=== PATIENT | female | born 1995 | race Two or more races ===

== ENCOUNTER 2024-05-20 02:02 | Emergency (ER) | payer OTHER, SELFPAY ==
[2024-05-20 02:14] VITALS: BP 133/88; PULSE 76; TEMP 36.7; O2SAT 98; BMI 39.5
--- NOTE | 2024-05-20 02:57 | ED.GENADUL1 ---
HPI HPI - General Adult General Chief complaint: Weakness Stated complaint: GENERAL WEAKNESS Time Seen by Provider: 05/20/24 02:15 Source: patient Mode of arrival: walk-in Limitations: no limitations History of Present Illness HPI narrative: This 28-year-old female the history of seizures presents for evaluation of blurred vision in the left eye with the sensation that her face is tight on the left side of her face with some facial numbness and numbness of her left anterior chest. She describes her symptoms as contractions of the muscles in her face. She states the symptoms started over 2 days ago. She was at work and had a migraine headache. She has been taking ibuprofen since that time. She does have intermittent episodes of nausea. Upon arriving to the emergency department and having a warm blanket placed on her she states she felt like she was going to pass out and was nauseated at that time. She thinks it was due to the heat from the blanket. She does admit to tobacco use but denies any alcohol or drug use. She has not had any slurred speech or confusion. She has no weakness. She has not had any falls. She has not had a seizure in over a year. She does not currently follow with any neurologist. She was seen by neurology in [place] when she was younger. Related Data Home Medications ?Medication ?Instructions ?Recorded ?Confirmed cyclobenzaprine 10 mg tablet 10 mg PO Q8H pain 05/20/24 05/20/24 lidocaine 5 % topical patch 1 patch topical Q24H PRN pain 05/20/24 05/20/24 Allergies Allergy/AdvReac Type Severity Reaction Status Date / Time No Known Drug Allergies Allergy Verified 05/20/24 02:21 Opioid HPI Opioid Management Most Recent Opioid Data: Last Pain Scale 6 05/20/24 02:30 05/20/24 Last ED Pain Assessment 05/20/24 02:30 Review of Systems ROS Status of ROS 10 or more systems reviewed and unremarkable except as noted in history and below PFSH PFSH Social History Little interest or pleasure in doing things: not at all Feeling down, depressed, or hopeless: nearly every day Exam Narrative Exam Narrative: Vital signs and Nursing Notes reviewed: She is afebrile with a normal pulse, normal blood pressure, she is not hypoxic with pulse ox of 98% on room air General: Awake, alert, oriented, no acute distress, lying comfortably on the stretcher HEENT: Normocephalic atraumatic, mucous membranes are moist and pink, eyes are clear, normal conjunctiva, vision is grossly intact, funduscopic exam is normal Neck: Supple, no meningeal signs, no anterior or posterior cervical lymphadenopathy Chest: Lungs are clear to auscultation with good air entry, there is no wheezing rhonchi or rales appreciated no accessory muscle use, patient is speaking in complete sentences-no chest wall tenderness to palpation CVS: Regular rate and rhythm S1-S2, no murmurs rubs or gallops, pulses are brisk and equal bilaterally ABD: Soft, nondistended, nontender, no rebound guarding or rigidity, bowel sounds are normal, no pulsatile masses appreciated Extremities: Moving all extremities, no lower extremity tenderness or swelling noted, negative Homans' sign, pulses are brisk and equal bilaterally Skin: Normal in appearance without rash,pallor, petechiae or purpura Neuro: No focal deficits, speech is clear, there is no facial droop, patient states that she has decreased sensation to light touch on the left cheek. 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 Constitutional Vital Signs, click to edit/add: Last Vital Signs Temp 98.0 F 05/20/24 02:14 Pulse 75 05/20/24 05:15 Resp 16 05/20/24 05:15 BP 129/71 05/20/24 05:15 Pulse Ox 95 05/20/24 05:15 O2 Del Method Room Air 05/20/24 05:15 Course Vital Signs Vital signs: Vital Signs Temperature 98.0 F 05/20/24 02:14 Pulse Rate 76 05/20/24 02:14 Respiratory Rate 16 05/20/24 02:14 Blood Pressure 133/88 05/20/24 02:14 Pulse Oximetry 98 05/20/24 02:14 Oxygen Delivery Method Room Air 05/20/24 02:14 Temperature 98.0 F 05/20/24 02:14 Pulse Rate 75 05/20/24 05:15 Respiratory Rate 16 05/20/24 05:15 Blood Pressure 129/71 05/20/24 05:15 Pulse Oximetry 95 05/20/24 05:15 Oxygen Delivery Method Room Air 05/20/24 05:15 Medical Decision Making ROSALEE Narrative Medical decision making narrative: This 28-year-old female with a history of a seizure disorder who is currently not on any medications does not see neurology presents for evaluation of greater than 2 days of the sensation that her left side of her face is numb with some blurred vision. She also states she has had numbness in her left anterior chest for the past 2 years. That is currently better. She has not recently had any seizures but states her symptoms started after having a migraine headache. She stated to me that she does not get migraine headaches but then stated that her symptoms started with a migraine headache while at work 2 nights ago. She has been taking ibuprofen without significant improvement. Her vital signs are stable. Neuroexam is normal with some decrease sensation in the left cheek area. An IV was placed and she was medicated with IV fluids, Toradol and Zofran. Routine labs were ordered and she has a normal white count and hemoglobin. Electrolytes are normal. CRP is normal.. On reevaluation after Toradol, Zofran and IV fluid she was reevaluated. She is sitting in a dark room on her phone. She states that her symptoms are much better . Her headache and the sensation in her face have improved/resolved at this time. CT scan of the brain was ordered and is negative for acute findings. On reevaluation her neurologic symptoms have resolved and she is resting comfortably. Her NIH stroke scale is 0. CT scan is negative. My suspicion is that she has a complex migraine. This was discussed with her. She will be discharged home with a prescription for ibuprofen and Reglan with recommendation for close follow-up with outpatient general medicine. Lab Data Lab results reviewed: Yes I reviewed the patient's lab results Labs: Lab Results 05/20/24 Range/Units 03:40 WBC 9.1 (4.0-11.0) 10^3/uL RBC 4.82 (4.20-5.40) 10^6/uL Hgb 13.1 (12.0-16.0) g/dL Hct 41.8 (36.0-48.0) % MCV 86.7 (81.0-99.0) fL MCH 27.2 (26.7-34.0) pg MCHC 31.3 (29.9-35.2) g/dL RDW 15.0 (11.0-15.0) % Plt Count 301 (150-450) 10^3/uL MPV 10.7 (9.5-13.5) fL Neut % (Auto) 44.0 (43.0-75.0) % Lymph % (Auto) 43.2 (20.5-60.0) % [place] % (Auto) 6.2 (1.7-12.0) % Eos % (Auto) 4.8 (0.9-7.0) % Baso % (Auto) 0.8 (0.2-2.0) % Neut # (Auto) 4.0 (1.4-6.5) 10^3/uL Lymph # (Auto) 4.0 H (1.2-3.8) 10^3/uL [place] # (Auto) 0.6 (0.3-0.8) 10^3/uL Eos # (Auto) 0.4 (0.0-0.7) 10^3/uL Baso # (Auto) 0.1 (0.0-0.1) 10^3/uL Abs Immat Gran (auto) 0.09 H (0.00-0.03) 10^3/uL Imm/Tot Granulo (auto) 1.0 H (0.0-0.5) % Sodium 138 (136-145) mmol/L Potassium 3.6 (3.5-5.1) mmol/L Chloride 104 (98-107) mmol/L Carbon Dioxide 23.9 (21.0-32.0) mmol/L Anion Gap 13.7 BUN 11.0 (7.0-18.0) mg/dL Creatinine 0.75 (0.55-1.02) mg/dL Est GFR ( Amer) >60 (>=60 mL/min/1.73m^2) Est GFR (Non-Af Amer) >60 (>=60 mL/min/1.73m^2) BUN/Creatinine Ratio 14.7 Glucose 91 (74-106) mg/dL Calcium 9.2 (8.5-10.1) mg/dL Total Bilirubin 0.3 (0.2-1.0) mg/dL AST 12 L (15-37) U/L ALT 23 (14-59) U/L Alkaline Phosphatase 76 (46-116) U/L C-Reactive Protein <0.50 (<=0.50) mg/dL Total Protein 7.6 (6.4-8.2) g/dL Albumin 3.5 (3.4-5.0) g/dL Globulin 4.1 g/dL Albumin/Globulin Ratio 0.9 Discharge Plan Discharge Chief Complaint: Weakness Clinical Impression: Migraine equivalent syndrome Patient Disposition: Home, Self-Care Time of Disposition Decision: 05:52 Condition: Good Prescriptions / Home Meds: No Action cyclobenzaprine 10 mg tablet 10 mg PO Q8H lidocaine 5 % adhesive patch,medicated 1 patch topical Q24H PRN (Reason: pain) Print Language: Moroccan Instructions: Migraine Headache (ED) Referrals: Physician,Non-Staff, MD [Primary Care Provider] - 1 week
[2024-05-20] MEDS: ONDANSETRON PF 4 MG/2 ML VIAL IV (03:32)
[2024-05-20] MEDS: 0.9 % SODIUM CHLORIDE 1,000 ML 1000 ML IV (03:32)
[2024-05-20] MEDS: KETOROLAC TROMETHAMINE 30 MG/ML VIAL IVP (03:32)
[2024-05-20 03:56] LABS: Basophils Absolute Auto 0.1 10^3/uL (0.0-0.1); Basophils Percent Auto 0.8 % (0.2-2.0); Eosinophils Absolute Auto 0.4 10^3/uL (0.0-0.7); Eosinophils Percent Auto 4.8 % (0.9-7.0); Hematocrit 41.8 % (36.0-48.0); Hemoglobin 13.1 g/dL (12.0-16.0); Immature Granulocytes Abs Auto 0.09 10^3/uL (0.00-0.03); Lymphocytes Percent Auto 43.2 % (20.5-60.0); Mean Corpuscular HGB Conc 31.3 g/dL (29.9-35.2); Mean Corpuscular Hemoglobin 27.2 pg (26.7-34.0); Mean Corpuscular Volume 86.7 fL (81.0-99.0); Mean Platelet Volume 10.7 fL (9.5-13.5); Monocytes Absolute Auto 0.6 10^3/uL (0.3-0.8); Monocytes Percent Auto 6.2 % (1.7-12.0); Platelet Count 301 10^3/uL (150-450); Red Blood Count 4.82 10^6/uL (4.20-5.40); White Blood Count 9.1 10^3/uL (4.0-11.0)
[2024-05-20 04:08] LABS: Alanine Aminotransferase 23 U/L (14-59); Albumin Globulin Ratio 0.9; Albumin Level 3.5 g/dL (3.4-5.0); Alkaline Phosphatase 76 U/L (46-116); Anion Gap 13.7; Aspartate Amino Transferase 12 U/L (15-37); BUN Creatinine Ratio 14.7; Bilirubin Total 0.3 mg/dL (0.2-1.0); C Reactive Protein <0.50 mg/dL (<=0.50); Calcium 9.2 mg/dL (8.5-10.1); Carbon Dioxide 23.9 mmol/L (21.0-32.0); Chloride 104 mmol/L (98-107); Estimated GFR (African America >60 (>=60 mL/min/1.73m^2); Estimated GFR (Non-African Ame >60 (>=60 mL/min/1.73m^2); Globulin 4.1 g/dL; Glucose 91 mg/dL (74-106); Potassium 3.6 mmol/L (3.5-5.1); Sodium 138 mmol/L (136-145); Total Protein 7.6 g/dL (6.4-8.2)
[2024-05-20 05:15] VITALS: BP 129/71; PULSE 75; O2SAT 95
== END 2024-05-20 06:09 | disposition home or self-care (01) ==
PROVIDERS: Emergency Provider Emergency Medicine
DX: G43.109 Migraine with aura, not intractable, without status migrainosus (principal); H53.8 Other visual disturbances; R53.1 Weakness; R20.2 Paresthesia of skin; F17.200 Nicotine dependence, unspecified, uncomplicated; R11.0 Nausea
CPT/HCPCS: 36415; 70450; 80053; 85025; 86140; 96374; 96375; 99284; J1885; J2405

== ENCOUNTER 2024-11-27 14:57 | Emergency (ER) | payer SELFPAY ==
[2024-11-27 15:03] VITALS: BP 144/94; PULSE 74; TEMP 36.7; O2SAT 99; BMI 38.6
--- OUTSIDE RECORDS SUMMARY | 2024-11-27 16:07 | XMS_ITS | CCD ---
Author Organization [facility] CliniSyal Care Team Providers Care Licensed Mortician Name Role Phone MELISSA HANSEN Unavailable Unavailable GIAN LOVELACE Admitting Unavailable GIAN LOVELACE Attending Unavailable REQUEST, NONE LISTED Primary Care Unavailable GIAN LOVELACE Consulting Unavailable JADA KLINE Attending Unavailable JADA KLINE Primary Care Unavailable ELENO ROCHA Primary Care Unavailable Problems Active Problems Problem Classification Problem Date Documented Da te Episodic/Chronic Headache; including migraine (1 source) Migraine Onset: 05-19-2024 Chronic Headache; including migraine (1 source) Headache; including migraine Onset: 05-19-2024 Other endocrine disorders (1 source) Polycystic ovarian syndrome; Translations: [Polycystic ovarian syndrome] Onset: 09-05-2023 Chronic Other gastrointestinal disorders (4 sources) Diarrhea, unspecified; Translations: [DIARRHEA UNSPECIFIED] Onset: 03-25-2018 Episodic Other nutritional; endocrine; and metabolic disorders (1 source) Body mass index (BMI) 40.0-44.9, adult; Translations: [Body mass index (BMI) 40.0-44.9, adult] Onset: 09-05-2023 Chronic Substance-related disorders (1 source) Nicotine dependence, cigarettes, uncomplicated; Translations: [NICOTINE DEPEND CIGARETTES UNCOMP] Onset: 04-26-2018 Chronic Unclassified (1 source) Establish Care Onset: 09-05-2023 Past or Other Problems Problem Classification Problem Date Documented Da te Episodic/Chronic Genitourinary symptoms and ill-defined conditions (1 source) Dysuria; Translations: [Dysuria] Onset: 12-05-2014 Episodic Results Test Name Value Interpretation Reference Range Facil ity CBC AUTO DIFFon 03-25-2018 Basophils #/vol (Bld) 0.1 103/ul Normal 0.0-0.1 [facility] Comment on above: Performed By: #### C BC #### [facility] [address] [address] Marilu Cris Basophils/100 WBC (Bld) 0.8 % Normal 0.2-2.0 [facility] Comment on above: Performed By: #### C BC #### [facility] [address] [address] Marilu Cris Eosinophils #/vol (Bld) 0.1 103/ul Normal 0.0-0.7 [facility] Comment on above: Performed By: #### C BC #### [facility] [address] [place] [address] Marilu Cris Eosinophils/100 WBC (Bld) 0.9 % Normal 0.9-7.0 [facility] Comment on above: Performed By: #### C BC #### [facility] [address] [place] [address] Marilu Lynch Erythrocyte distribution width Ratio (RBC) 15.9 % Critically high 11.0-15.0 [facility] Comment on above: Performed By: #### C BC #### [facility] [address] [place] [address] Marilu Lynch Hematocrit Volume Fraction (Bld) 30.7 % Critically low 36.0-48.0 [facility] Comment on above: Performed By: #### C BC #### [facility] [address] [place] [address] Marilu Lynch Hemoglobin mass conc (Bld) 9.2 g/dL Critically low 12.0-16.0 [facility] Comment on above: Performed By: #### C BC #### [facility] [address] [place] [address] Marilu Adleren IG # 0.04 10e3/ul Critically high 0.00-0.03 [facility] Comment on above: Performed By: #### C BC #### [facility] [address] [id number] [place] Lynch IG % 0.4 % Normal 0.0-0.5 [facility] Comment on above: Performed By: #### C BC #### [facility] [address] [place] [address] Marilu Lynch Lymphocytes #/vol (Bld) 2.6 103/ul Normal 1.2-3.8 [facility] Comment on above: Performed By: #### C BC #### [facility] [address] [place] [address] Marilu Lynch Lymphocytes/100 WBC (Bld) 26.2 % Normal 20.5-60.0 [facility] Comment on above: Performed By: #### C BC #### [facility] [address] [place] [address] Marilu Lynch MANUAL DIFF REQ NO Normal [facility] Comment on above: Performed By: #### C BC #### [facility] [address] [place] [address] [place] Lynch MCH Entitic mass (RBC) 21.9 pg Critically low 26.7-34.0 [facility] Comment on above: Performed By: #### C BC #### [facility] [address] [place] [address] Marilu Lynch MCHC mass conc (RBC) 30.0 g/dL Normal 29.9-35.2 [facility] Comment on above: Performed By: #### C BC #### [facility] [address] [place] [address] [place] Lynch MCV Entitic volume (RBC) 72.9 fL Critically low 81.0-99.0 [facility] Comment on above: Performed By: #### C BC #### [facility] [address] [place] [address] Marilu Cris Monocytes #/vol (Bld) 0.4 103/ul Normal 0.3-0.8 [facility] Comment on above: Performed By: #### C BC #### [facility] [address] [place] [address] Marilu Cris Monocytes/100 WBC (Bld) 4.3 % Normal 1.7-12.0 [facility] Comment on above: Performed By: #### C BC #### [facility] [address] [id number] Marilu Cris Neutrophils #/vol (Bld) 6.7 103/ul Critically high 1.4-6.5 [facility] Comment on above: Performed By: #### C BC #### [facility] [address] [id number] [place] Lynch Neutrophils/100 WBC (Bld) 67.4 % Normal 43.0-75.0 [facility] Comment on above: Performed By: #### C BC #### [facility] [address] [place] [address] [place] Lynch Platelet mean volume Entitic volume (Bld) 11.1 fL Normal 9.5-13.5 [facility] Comment on above: Performed By: #### C BC #### [facility] [address] [place] [address] [place] Lynch Platelets #/vol (Bld) 353 103/ul Normal 150-450 [facility] Comment on above: Performed By: #### C BC #### [facility] [address] [place] [address] [place] Lynch RBC #/vol (Bld) 4.21 106/ul Normal 4.20-5.40 [facility] Comment on above: Performed By: #### C BC #### [facility] [address] [id number] [place] Lynch WBC #/vol (Bld) 9.9 103/ul Normal 4.0-11.0 [facility] Comment on above: Performed By: #### C BC #### [facility] [address] [place], [place] [id number] Marilu Lynch PROF CHEM 8 (BAS METB)on Anion gap molar conc 15.0 mmol/L Normal [facility] Comment on above: Performed By: #### B MP #### [facility] [address] [place], [place] [id number] Marilu Cris Calcium mass conc 9.2 mg/dL Normal 8.4-10.2 [facility] [place] Comment on above: Performed By: #### B MP #### [facility] [address] [address] Marilu Cris Chloride molar conc 103 mmol/L Normal 98-107 [facility] Comment on above: Performed By: #### B MP #### [facility] [address] [address] Marilu Cris CO2 molar conc 24.0 mmol/L Normal 22.0-30.0 [facility] Comment on above: Performed By: #### B MP #### [facility] [address] [address] Marilu Cris Creatinine mass conc 0.70 mg/dL Normal 0.52-1.04 [facility] Comment on above: Performed By: #### B MP #### [facility] [address] [address] Marilu Cris EGFR-AF GRENADIAN >60 Normal >=60 [facility] Comment on above: Performed By: #### B MP #### [facility] [address] [address] Marilu Cris EGFR-NON AF GRENADIAN >60 Normal >=60 [facility] Comment on above: Performed By: #### B MP #### [facility] [address] [address] Marilu Cris Glucose mass conc 117 mg/dL Critically high 74-106 [facility] Comment on above: Performed By: #### B MP #### [facility] [address] [address] Marilu Cris Potassium molar conc 4.0 mmol/L Normal 3.4-5.0 [facility] Comment on above: Performed By: #### B MP #### [facility] [address] [address] Marilu Cris Sodium molar conc 138 mmol/L Normal 137-145 [facility] [place] Comment on above: Performed By: #### B MP #### [facility] [address] [place], [place] [address] Marilu Lynch Urea nitrogen mass conc 15.0 mg/dL Normal 7.0-17.0 [facility] Comment on above: Performed By: #### B MP #### [facility] [address] [place], [place] [address] Marilu Lynch Urea nitrogen/Creatinine mass ratio 21.4 mg/mg Normal [facility] Comment on above: Performed By: #### B MP #### [facility] [address] [place], [place] [address] Marilu Lynch Encounters Encounter Date Encounter Type Care Provider Facility Start: 05-19-2024 End: 05-20-2024 Emergency department patient visit [facility] Start: 09-05-2023 End: 09-05-2023 ambulatory [facility] Start: 03-25-2018 End: 03-25-2018 Patient encounter procedure GIAN LOVELACE Facility: Start: 12-05-2014 End: 12-06-2014 Ambulatory [facility] Payers Date Payer Category Payer Unknown [id number] 1995 Unknown [id number] 1995 Unknown [id number] 1959 Unknown [id number] 1959 Unknown [id number] Private Health Insurance [id number] Summary Purpose Family History No Family History Records FoundNo Family History Records FoundNo Family History Records FoundNo Family History Records Found Advance Directives No Advanced Directives Records FoundNo Advanced Directives Records FoundNo Advanced Directives Records FoundNo Advanced Directives Records Found Additional Source Comments INFORMATION SOURCE (unrecogn ized section and content) DATE CREATED AUTHOR 09/18/2017 [facility] DATE CREATED AUTHOR AUTHOR'S ORGANIZ ATION 05/14/2018 [facility] DATE CREATED AUTHOR AUTHOR'S ORGANIZ ATION 09/06/2023 [facility] DATE CREATED AUTHOR AUTHOR'S ORGANJULIO ATION 05/21/2024 [facility] FOR RECORDS PERTAINING TO PATIENTS WHO ARE OR HAVE BEEN ENROLLED IN A CHEMICAL DEPENDENCY/SUBSTANCEABUSE PROGRAM, SOME INFORMATION MAY BE OMITTED. This clinical summary was aggregated from multiple sources. Caution should be exercised in using it in the provision of clinical care. This summary normalizes information from multiple sources, and as a consequence, information in this document may materially change the coding, format and clinical context of patient data. In addition, data may be omitted in some cases. CLINICAL DECISIONS SHOULD BE BASED ON THE PRIMARY CLINICAL RECORDS. [facility] provides no warranty or guarantee of the accuracy or completeness of information in this document.
--- NOTE | 2024-11-28 07:28 | ED.GENADUL1 ---
HPI HPI - General Adult General Chief complaint: Neck Pain/Injury Stated complaint: HEADACHE Time Seen by Provider: 11/27/24 15:05 Source: patient Mode of arrival: walk-in Limitations: no limitations History of Present Illness HPI narrative: A 28-year-old female presenting to the emergency department at the request of her employer for evaluation of intermittent left neck/arm pain persisting over the last 4 months. She states that intermittently throughout the day, and mostly in the mornings, she notices numbness/tingling and pain rating from the left side of her neck down her left arm. She states that when she cries and when she has anxiety, her symptoms worsen. She denies any current symptoms, and is only here because her employer is concerned about her health. She denies any recent trauma or injuries to the neck/extremity. She denies any weakness in the arm. She denies any other systemic complaint such as chest pain, shortness of breath, fevers, chills, nausea, vomiting, neck stiffness. No prior surgeries to her neck. Related Data Home Medications ?Medication ?Instructions ?Recorded ?Confirmed No Known Home Medications 11/27/24 11/27/24 Allergies Allergy/AdvReac Type Severity Reaction Status Date / Time No Known Drug Allergies Allergy Verified 11/27/24 15:02 Opioid HPI Opioid Management Most Recent Opioid Data: Last Pain Scale 4 11/27/24, 15:03 Review of Systems ROS Status of ROS 10 or more systems reviewed and unremarkable except as noted in history and below PFSH PFSH Social History Little interest or pleasure in doing things: several days Feeling down, depressed, or hopeless: several days Exam Narrative Exam Narrative: CONSTITUTIONAL: Well-appearing, answering questions and following commands appropriately SKIN: Was warm and dry. EYES: Sclerae white EARS, NOSE, THROAT: Moist mucosa RESPIRATORY: Clear to auscultation bilaterally, no wheezes, crackles, or stridor, no use of accessory muscles CARDIOVASCULAR: Normal rate and regular rhythm. There is no S3, S4, murmur, rub. Radial pulses are 2+ and symmetrical. GASTROINTESTINAL: Abdomen was soft, non-tender, and non-distended. There is no guarding or rebound tenderness MUSCULOSKELETAL: Full range of motion of bilateral upper extremities. No C-spine tenderness. Negative Spurling test. There is no peripheral edema. NEUROLOGIC: Patient is awake and alert. Equal strength and sensation to light touch in all extremities. Rapid alternating finger movements intact. Facies were symmetrical. Constitutional Vital Signs, click to edit/add: Last Vital Signs Temp 98.0 F 11/27/24 15:03 Pulse 74 11/27/24 15:03 Resp 18 11/27/24 15:03 BP 144/94 H 11/27/24 15:03 Pulse Ox 99 11/27/24 15:03 O2 Del Method Room Air 11/27/24 15:03 Course Vital Signs Vital signs: Vital Signs Temperature 98.0 F 11/27/24 15:03 Pulse Rate 74 11/27/24 15:03 Respiratory Rate 18 11/27/24 15:03 Blood Pressure 144/94 H 11/27/24 15:03 Pulse Oximetry 99 11/27/24 15:03 Oxygen Delivery Method Room Air 11/27/24 15:03 Temperature 98.0 F 11/27/24 15:03 Pulse Rate 74 11/27/24 15:03 Respiratory Rate 18 11/27/24 15:03 Blood Pressure 144/94 H 11/27/24 15:03 Pulse Oximetry 99 11/27/24 15:03 Oxygen Delivery Method Room Air 11/27/24 15:03 Medical Decision Making MDM Narrative Medical decision making narrative: Patient is a healthy 28-year-old female presenting to the emergency department at the request of her employer for evaluation of intermittent left arm/neck pain and paresthesias. Patient is currently asymptomatic. She has normal vital signs. She has a normal physical examination. Possible differential diagnoses include left-sided cervical radiculopathy, peripheral neuropathy, musculoskeletal strain/torticollis. She has good strength, range of motion, distal pulses, and sensation throughout the bilateral upper extremities. There is no midline C-spine tenderness. She displays no evidence of myelopathy and is neurovascuarly intact. She is otherwise at her baseline state of health. I do not believe any imaging is required at this time. She is instructed to follow-up with a primary care physician for further evaluation should her symptoms persist. Return precautions were given including any new or concerning symptoms. Patient understands and agrees to the plan. FINAL IMPRESSION: #Acute intermittent left-sided neck and arm pain/paresthesias, possibly cervical radiculopathy #Normal examination DISPOSITION: Discharged home CONDITION: Good Discharge Plan Discharge Chief Complaint: Neck Pain/Injury Clinical Impression: Cervical radiculopathy Patient Disposition: Home, Self-Care Time of Disposition Decision: 15:19 Condition: Good Mode of Transportation: Private Vehicle Prescriptions / Home Meds: No Action No Known Home Medications Print Language: Amharic Instructions: Cervical Radiculopathy (ED) Referrals: Physician,Non-Staff, MD [Primary Care Provider] - 1 week Discharge Date/Time: 11/27/24 15:29
== END 2024-11-27 15:29 | disposition home or self-care (01) ==
PROVIDERS: Emergency Provider Student in an Organized Health Care Education/Training Program
DX: M54.12 Radiculopathy, cervical region (principal)
CPT/HCPCS: 99281

== ENCOUNTER 2025-02-27 18:56 | Emergency (ER) | payer SELFPAY ==
[2025-02-27 19:00] VITALS: BP 148/84; PULSE 89; TEMP 37.2; O2SAT 98; BMI 39.5
--- OUTSIDE RECORDS SUMMARY | 2025-02-27 19:36 | XMS_ITS | CCD ---
Author Organization [facility] ion Partnership [facility] CliniSyri Care Team Providers Care Mitigation Supervisor Name Role Phone MELISSA HANSEN Unavailable Unavailable GIAN LOVELACE Admitting Unavailable GIAN LOVELACE Attending Unavailable REQUEST, NONE LISTED Primary Care Unavailable GIAN LOVELACE Consulting Unavailable JADA KLINE Attending Unavailable JADA KLINE Primary Care Unavailable ELENO ROCHA Primary Care Unavailable Problems Active Problems Problem ClassificationProblemDateDocumented DateEpisodic/ChronicHeadache; including migraine (1 source)MigraineOnset: 67-53-3555EgrqwemImfrtdxj; including migraine (1 source)Headache; including migraineOnset: 73-57-5279Lnnmi endocrine disorders (1 source)Polycystic ovarian syndrome; Translations: [Polycystic ovarian syndrome]Onset: 65-43-6214HlcleroGscqv gastrointestinal disorders (4 sources)Diarrhea, unspecified; Translations: [DIARRHEA UNSPECIFIED]Onset: 11-00-4845XdpwzooiTihsv nutritional; endocrine; and metabolic disorders (1 source)Body mass index (BMI) 40.0-44.9, adult; Translations: [Body mass index (BMI) 40.0-44.9, adult]Onset: 67-07-5659YdymppiTqfaifsql-related disorders (1 source)Nicotine dependence, cigarettes, uncomplicated; Translations: [NICOTINE DEPEND CIGARETTES UNCOMP]Onset: 66-89-4181YftuwqbSqpzukczgaba (1 source)Establish CareOnset: 09-05-2023 Past or Other Problems Problem ClassificationProblemDateDocumented DateEpisodic/ChronicGenitourinary symptoms and ill-defined conditions (1 source)Dysuria; Translations: [Dysuria]Onset: 84-64-3270Ddmgriut Results Test NameValueInterpretationReference RangeFacilityCBC AUTO DIFFon 03-25-2018 Basophils #/vol (Bld)0.1 103/ulNormal0.0-0.1The [facility] CenterComment on above:Performed By: #### CBC #### [facility] [address] [place] [address] Marilu KarenBasophils/100 WBC (Bld)0.8 %Normal0.2-2.0[facility] Comment on above:Performed By: #### CBC #### [facility] [address] [place] [address] Marilu KarenEosinophils #/vol (Bld)0.1 103/ulNormal0.0-0.7[facility] Comment on above:Performed By: #### CBC #### [facility] [address] [place] [address] Marilu KarenEosinophils/100 WBC (Bld)0.9 %Normal0.9-7.0[facility] Comment on above:Performed By: #### CBC #### [facility] [address] [place] [address] Marilu KarenErythrocyte distribution width Ratio (RBC)15.9 %Critically high 11.0-15.0The [facility] CenterComment on above:Performed By: #### CBC #### [facility] [address] [place] [address] Marilu KarenHematocrit Volume Fraction (Bld)30.7 %Critically low36.0-48.0[facility] HospitalComment on above:Performed By: #### CBC #### [facility] [address] [place] [address] Marilu KarenHemoglobin mass conc (Bld)9.2 g/dLCritically low12.0-16.0[facility] HospitalComment on above:Performed By: #### CBC #### [facility] [address] [place] [address] [place] AdlerenIG #0.04 10e3/ulCritically high0.00-0.03The [facility] Medical CenterComment on above:Performed By: #### CBC #### [facility] [address] [place] [address] Marilu AdlerenIG %0.4 %Normal0.0-0.5ThOhioHealth Shelby HospitalComment on above: Performed By: #### CBC #### [facility] [address] [place] [address] Marilu KarenLymphocytes #/vol (Bld)2.6 103/ulNormal1.2-3.8[facility] Comment on above:Performed By: #### CBC #### [facility] [address] [place] [address] Marilu AdlerenLymphocytes/100 WBC (Bld)26.2 %Cwcmqt16.5-60.0[facility] Comment on above:Performed By: #### CBC #### [facility] [address] [place] [address] Marilu KarenMANUAL DIFF REQNONormalThe Regional Medical CenterComment on above: Performed By: #### CBC #### [facility] [address] [place] [address] Marilu KarMyMichigan Medical Center SaultH Entitic mass (RBC)21.9 pgCritically low26.7-34.0[facility] HospitalComment on above:Performed By: #### CBC #### [facility] [address] [place] [address] Marilu KarMyMichigan Medical Center SaultHC mass conc (RBC)30.0 g/bMKgnasv94.9-35.2[facility] Comment on above:Performed By: #### CBC #### [facility] [address] [place] [address] Marilu KarenV Entitic volume (RBC)72.9 fLCritically low81.0-99.0The [facility] CenterComment on above:Performed By: #### CBC #### [facility] [address] [place], [place] [address] Marilu KarenMonocytes #/vol (Bld)0.4 103/ulNormal0.3-0.8[facility] Comment on above:Performed By: #### CBC #### [facility] [address] [place], [place] [id number] Marilu KarenMonocytes/100 WBC (Bld)4.3 %Normal1.7-12.0[facility] Comment on above:Performed By: #### CBC #### [facility] [address] [place] [address] Marilu KarenNeutrophils #/vol (Bld)6.7 103/ulCritically high1.4-6.5The [facility] CenterComment on above:Performed By: #### CBC #### [facility] [address] [place] [address] Marilu KarenNeutrophils/100 WBC (Bld)67.4 %Cqtevg59.0-75.0[facility] Comment on above:Performed By: #### CBC #### [facility] [address] [place] [address] Marilu KarenPlatelet mean volume Entitic volume (Bld)11.1 fLNormal9.5-13.5ThOhioHealth Shelby HospitalComment on above:Performed By: #### CBC #### [facility] [address] [place] [address] Marilu KarenPlatelets #/vol (Bld)353 103/lePgggqf851-606Eyw [facility] Comment on above:Performed By: #### CBC #### [facility] [address] [place] [address] Marilu KarenRBC #/vol (Bld)4.21 106/ulNormal4.20-5.40[facility] Comment on above:Performed By: #### CBC #### [facility] [address] [place] [address] Marilu KarenWBC #/vol (Bld)9.9 103/ulNormal4.0-11.0[facility] HospitalComment on above:Performed By: #### CBC #### [facility] [address] [place] [address] Marilu KarenPROF CHEM 8 (BAS METB)on 76-00-0099Fnfxv gap molar conc15.0 mmol/L NormalMercy Health Lorain HospitalComment on above:Performed By: #### BMP #### [facility] [address] [place] [address] Marilu KarenCalcium mass conc9.2 mg/dLNormal8.4-10.2[facility] HospitalComment on above:Performed By: #### BMP #### [facility] [address] [place] [address] Marilu KarenChloride molar uezn517 mmol/DJplxep01-963[facility] Comment on above:Performed By: #### BMP #### [facility] [address] [place] [address] Marilu KarenCO2 molar conc24.0 mmol/CZkfcvv41.0-30.0The [facility] Medical CenterComment on above:Performed By: #### BMP #### [facility] [address] [place] [address] Marilu KarenCreatinine mass conc0.70 mg/dLNormal0.52-1.04[facility] Comment on above:Performed By: #### BMP #### [facility] [address] [place] [address] Marilu KarenEGFR-AF MOLDOVAN>60Normal>=60The [facility] Medical CenterComment on above: Performed By: #### BMP #### [facility] [address] [place] [address] Marilu KarenEGFR-NON AF MOLDOVAN>60Normal>=60[facility] HospitalComment on above:Performed By: #### BMP #### [facility] [address] [place] [address] Marilu KarenGlucose mass rvpq062 mg/dLCritically udio17-659CraMercy Health Lorain Hospital Comment on above:Performed By: #### BMP #### [facility] [address] [place] [address] Marilu KarenPotassium molar conc4.0 mmol/LNormal3.4-5.0[facility] Comment on above:Performed By: #### BMP #### [facility] [address] [place], [place] [address] Marilu KarenSodium molar hdbv248 mmol/LWimuxs765-141Utk [facility] Medical CenterComment on above:Performed By: #### BMP #### [facility] [address] [place], [place] [address] Mariul KarenUrea nitrogen mass conc15.0 mg/dLNormal7.0-17.0[facility] Comment on above:Performed By: #### BMP #### [facility] [address] [place], [place] [address] Marilu KarenUrea nitrogen/Creatinine mass ratio21.4 mg/mgNormalThOhioHealth Shelby HospitalComment on above:Performed By: #### BMP #### [facility] [address] [place], [place] [address] Marilu Cris Encounters Encounter DateEncounter TypeCare ProviderFacilityStart: 05-19-2024 End: 73-32-6600Qiefwocqg department patient visitSALAdena Pike Medical Centertart: 09-05-2023 End: 42-15-1903mlynwmhnoqOKFKWGSBeth [facility] Ambulatory PPGStart: 03-25-2018 End: 79-24-0672Avdysmn encounter procedureSMONA LOVELACEFacility:M2Uslrv: 12-05-2014 End: 61-30-5523RnepjvfcfqKIHJOMarcum and Wallace [facility] Hospital Payers DatePayer CategoryPayerPolicy [id number] Hospital For Women And [id number] Summary Purpose Family History No Family History Records FoundNo Family History Records FoundNo Family History Records FoundNo Family History Records Found Advance Directives No Advanced Directives Records FoundNo Advanced Directives Records FoundNo Advanced Directives Records FoundNo Advanced Directives Records Found Additional Source Comments INFORMATION SOURCE (unrecogn ized section and content) DATE CREATED AUTHOR 09/18/2017 [facility] DATE CREATED AUTHOR AUTHOR'S ORGANIZ ATION 05/14/2018 [facility] DATE CREATED AUTHOR AUTHOR'S ORGANIZ ATION 09/06/2023 [facility] DATE CREATED AUTHOR AUTHOR'S ORGANIZ ATION 05/21/2024 [facility] FOR RECORDS PERTAINING TO PATIENTS WHO ARE [...] BE BASED ON THE PRIMARY CLINICAL RECORDS. [facility] [employer] [facility]. provides no warranty or guarantee of the accuracy or completeness of information in this document.
--- OUTSIDE RECORDS SUMMARY | 2025-02-27 19:38 | XMS_ITS | Clinical Summary ---
Author Organization [facility] Address [id number] [address] [place] [address] Care Team Providers Care Management Specialist Name Role Phone Amilcar Calvert MD Primary Care Provider Allergies No known active allergies Medications MedicationSigDispense QuantityRefillsLast FilledStart DateEnd DateStatus cyclobenzaprine (FLEXERIL) 10 mg tablet Take 1 tablet (10 mg total) by mouth 2 (two) times a day as needed for muscle spasms. 10 tablet 10/17/2022ctive Additional Information Patient not taking.Reported on 09/05/2023 ibuprofen (MOTRIN) 800 mg tablet Take 1 tablet (800 mg total) by mouth every 6 (six) hours as needed for pain. 30 tablet 10/17/2022ctive lidocaine (LIDODERM) 5 % Place 1 patch on the skin daily. Remove & Discard patch within 12 hours or as directed by 15 patch 10/17/2022ctive Additional Information Patient not taking.Reported on 09/05/2023 Family History Medical HistoryRelationNameCommentsHeart diseaseFatherSleep apneaFatherDiabetes MotherRelationNameStatusCommentsFatherAliveMotherAlive Social History Tobacco UseTypesPacks/DayYears UsedDateSmoking Tobacco: FormerCigarettesQuit: 2023Smokeless Tobacco: Never Tobacco Cessation:Counseling Given: Not Answered Alcohol UseStandard Drinks/WeekCommentsNever0 (1 standard drink = 0.6 oz pure alcohol)AUDIT-CAnswerDate RecordedQ1: How often do you have a drink containing alcohol?Never09/10/2019Average Number of DrinksNot on file09/10/2019Frequency of Binge DrinkingNot on file09/10/2019PHQ-2AnswerDate RecordedTotal Score10 4ChildcareAnswerDate LixvukufDkojwmuziTrfibyr54/15/2020EmploymentAnswer Date IimdgasiYendfwaezeJmeabyo70/15/2020Hunger ScreeningAnswerDate Recorded Within the past 12 months we worried whether our food would run out before we got money to buy more.Never True05/20/2024Within the past 12 months the food we bought just didn't last and we didn't have money to get more.Never True 05/20/2024Purpose - LifeAnswerDate RecordedPurpose and direction in lifeUnknown 1CommentsNoSex and Gender InformationValueDate RecordedSex Assigned at BirthNot on fileLegal LdgWkhspv80/04/2015 12:17 PM EDTGender IdentityNot on fileSexual OrientationNot on file Last Filed Vital Signs Vital SignReadingTime TakenCommentsBlood Zppeiuwv169/2461105/20/2024 12:11 AM EST Inast9718/25/2025 12:11 AM DZJLzpsgakbhqw31 ??C (98.6 ??F)05/20/2024 12:11 AM ESTRespiratory Grwr253205/20/2024 12:11 AM ESTOxygen Qozzitnfss958%05/20/2024 12:11 AM ESTInhaled Oxygen Concentration--Izxizj270.1 kg (245 lb)05/20/2024 12:11 AM ROPZwqzoo716.6 cm (5' 4 )05/20/2024 12:11 AM ESTBody Mass Index42.05 05/20/2024 12:11 AM EST Plan of Treatment Health MaintenanceDue DateLast DoneCommentsAdult BMI Follow Up Plan12/19/2013 DTaP,Tdap and Td Vaccines (1 - Tdap)12/19/2014Pap Smear12/19/2016Depression Urmvodcjg32/02/2024Influenza Wcfrinp8911/24/2024dult BMI Screening Tobacco Mlumhokoy39 Medical Devices Not on file Insurance Care Teams Team MemberRelationshipSpecialtyStart DateEnd Amilcar Calvert MD [address] [facility] [address] [place] [address] PCP - GeneralMedical Oncology05/19/24
--- NOTE | 2025-02-27 19:44 | ED.ABDPAIN1 ---
HPI - Abdominal Pain General Chief Complaint: Abdominal Pain Stated Complaint: Abdominal Pain Time Seen by Provider: 02/27/25 19:19 Source: patient Mode of arrival: walk-in History of Present Illness HPI narrative: recurrent episodes of abdominal pain on and off over the past month. Increased frequency this past week. History of GERD and constant heart burn that she does not treat. Has vomited on and off over past 4 days. this am after eating and smoking cigarette developed intense abdominal pain. States she felt hot and was sweating. Laid down on the sofa and passed out. Woke up this after noon. States she drank some water and within 20 minutes developed abdominal pain that has again resolved. No diarrhea. She does not believe she is constipated. she denies tarry stools. States she has PCOS. also complains of almost constant menstrual period. 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 as she does not have insurance Related Data Home Medications ?Medication ?Instructions ?Recorded ?Confirmed cephalexin 500 mg capsule 1,000 mg PO BID 02/27/25 02/27/25 ferrous sulfate 325 mg (65 mg 325 mg PO BID 02/27/25 02/27/25 iron) tablet (FeroSul) omeprazole 20 mg capsule,delayed 20 mg PO DAILY 02/27/25 02/27/25 release ondansetron HCl 4 mg tablet 4 mg PO TID PRN nausea and vomiting 02/27/25 02/27/25 Allergies Allergy/AdvReac Type Severity Reaction Status Date / Time No Known Drug Allergies Allergy Verified 02/27/25 19:00 Review of Systems ROS Status of ROS 10 or more systems reviewed and unremarkable except as noted in history and below PFSH PFSH Social History Little interest or pleasure in doing things: not at all Feeling down, depressed, or hopeless: not at all Exam Constitutional Vital Signs, click to edit/add: Last Vital Signs Temp 99.0 F 02/27/25 19:00 Pulse 66 02/27/25 21:26 Resp 18 02/27/25 21:26 BP 122/78 02/27/25 21:26 Pulse Ox 100 02/27/25 21:26 O2 Del Method Room Air 02/27/25 19:00 Common normals: no apparent distress, average body habitus, oriented x3, no limitations, healthy appearing, alert and well nourished [facility] Common normals: normocephalic and head/scalp atraumatic Eye Common normals: EOMs intact bilaterally and conjunctivae normal Respiratory Common normals: normal respiratory effort, no retractions, no use of accessory muscles and clear to auscultation bilaterally Cardio Common normals: regular rate, regular rhythm, S1 normal heart sound and S2 normal heart sound GI Common normals: Normal to inspection, nondistended, normoactive bowel sounds present, soft to palpation and non-tender Extremity Common normals: normal to inspection and full ROM Neuro Common normals: oriented x3, CN's II-XII intact bilaterally, moves all extremities and no focal motor deficits Psych Appearance: grossly normal Course Vital Signs Vital signs: Vital Signs Temperature 99.0 F 02/27/25 19:00 Pulse Rate 89 02/27/25 19:00 Respiratory Rate 20 02/27/25 19:00 Blood Pressure 148/84 H 02/27/25 19:00 Pulse Oximetry 98 02/27/25 19:00 Oxygen Delivery Method Room Air 02/27/25 19:00 Temperature 99.0 F 02/27/25 19:00 Pulse Rate 66 02/27/25 21:26 Respiratory Rate 18 02/27/25 21:26 Blood Pressure 122/78 02/27/25 21:26 Pulse Oximetry 100 02/27/25 21:26 Oxygen Delivery Method Room Air 02/27/25 19:00 MDM - Abdominal Pain MDM Narrative Medical decision making narrative: patient presents complaining of increased episodes of abdominal pain that occur after eating. Does have history of GERD but she has not been treating it. Also has vaginal bleeding for several months which she feels is related to her PCOS. She has not seen her magnetometer operator because of lack of insurance. No bleeding at this time. Her abdominal exam is neg. Xray of her abdomen is also unremarkable. UA is positive and she was given dose or Rocephin. she is informed of the need for iron supplementation and to follow up with gynecology. She is also prescribed bactrim ds and advised to use Prilosec for her known GERD as this may help her abdominal complaints. Asymptomatic while here in the department Lab Data Labs: Lab Results 02/27/25 Range/Units 19:50 WBC 10.1 (4.0-11.0) 10^3/uL RBC 4.37 (4.20-5.40) 10^6/uL Hgb 8.8 L (12.0-16.0) g/dL Hct 30.6 L (36.0-48.0) % MCV 70.0 L (81.0-99.0) fL MCH 20.1 L (26.7-34.0) pg MCHC 28.8 L (29.9-35.2) g/dL RDW 17.1 H (11.0-15.0) % Plt Count 409 (150-450) 10^3/uL MPV 10.7 (9.5-13.5) fL Neut % (Auto) 59.6 (43.0-75.0) % Lymph % (Auto) 30.3 (20.5-60.0) % Dukes % (Auto) 6.4 (1.7-12.0) % Eos % (Auto) 1.9 (0.9-7.0) % Baso % (Auto) 0.8 (0.2-2.0) % Neut # (Auto) 6.0 (1.4-6.5) 10^3/uL Lymph # (Auto) 3.1 (1.2-3.8) 10^3/uL Dukes # (Auto) 0.7 (0.3-0.8) 10^3/uL Eos # (Auto) 0.2 (0.0-0.7) 10^3/uL Baso # (Auto) 0.1 (0.0-0.1) 10^3/uL Abs Immat Gran (auto) 0.10 H (0.00-0.03) 10^3/uL Imm/Tot Granulo (auto) 1.0 H (0.0-0.5) % Sodium 140 (136-145) mmol/L Potassium 3.8 (3.5-5.1) mmol/L Chloride 105 (98-107) mmol/L Carbon Dioxide 26.1 (21.0-32.0) mmol/L Anion Gap 12.7 BUN 13.0 (7.0-18.0) mg/dL Creatinine 0.73 (0.55-1.02) mg/dL Est GFR ( Amer) >60 (>=60 mL/min/1.73m^2) Est GFR (Non-Af Amer) >60 (>=60 mL/min/1.73m^2) BUN/Creatinine Ratio 17.8 Glucose 95 (74-106) mg/dL Lactate 1.3 (0.4-2.0) mmol/L Calcium 9.3 (8.5-10.1) mg/dL Total Bilirubin 0.3 (0.2-1.0) mg/dL AST 11 L (15-37) U/L ALT 24 (14-59) U/L Alkaline Phosphatase 85 (46-116) U/L Total Protein 8.1 (6.4-8.2) g/dL Albumin 3.8 (3.4-5.0) g/dL Globulin 4.3 g/dL Albumin/Globulin Ratio 0.9 Urine Color Lt. yellow (YELLOW) Urine Clarity Sl cloudy (CLEAR) Urine pH 5.5 (5.0-9.0) Ur Specific [place] 1.010 (1.005-1.025) Urine Protein Negative (NEG/TRACE) mg/dL Urine Glucose (UA) Negative (NEGATIVE) mg/dL Urine Ketones Negative (NEGATIVE) mg/dL Urine Occult Blood Large A (NEGATIVE) Urine Nitrite Negative (NEGATIVE) Urine Bilirubin Negative (NEGATIVE) Urine Urobilinogen 0.2 (0.2-1.0) EU/dL Ur Leukocyte Esterase Moderate A (NEGATIVE) Urine RBC >100 A (0-2) #/HPF Urine WBC 75-100 A (NONE SEEN) #/HPF Ur Squamous Epith Cells Moderate A (NONE/RARE) #/LPF Urine Crystals None seen (None Seen) #/HPF Urine Bacteria Moderate A (NONE SEEN) #/HPF Urine Casts None seen (NONE SEEN) #/LPF Urine Mucus Moderate A (NONE SEEN) Ur Culture Indicated? [place]-[facility] [place] Discharge Plan Discharge Chief Complaint: Abdominal Pain Clinical Impression: UTI (urinary tract infection), GERD (gastroesophageal reflux disease), Anemia, Abdominal pain Patient Disposition: Home, Self-Care Mode of Transportation: Private Vehicle Prescriptions / Home Meds: No Action cephalexin 500 mg capsule 1,000 mg PO BID Patient Comments: started on 02/28/25 ondansetron HCl 4 mg tablet 4 mg PO TID PRN (Reason: nausea and vomiting) Patient Comments: started on 02/28/25 omeprazole 20 mg capsule,delayed release(DR/EC) 20 mg PO DAILY Patient Comments: started 12/06/25 ferrous sulfate [FeroSul] 325 mg (65 mg iron) tablet 325 mg PO BID Patient Comments: started 02/28/25 Print Language: Belarusian Instructions: Urinary Tract Infection in Women (ED), GERD (Gastroesophageal Reflux Disease) (ED), Abdominal Pain (ED), Anemia (ED) Additional Instructions: follow up with your doctor next week for recheck Referrals: Physician,Non-Staff, MD [Primary Care Provider] - 1 week Discharge Date/Time: 02/27/25 21:42
--- NOTE | 2025-02-27 19:47 | XR_ITS ---
[facility] [place] [address] Patient Name: XAVIER BELLO MRN: [id number] date: 1995 Sex: F Assigned Patient Location: ED.MAIN Current Patient Location: ED.MAIN Accession/Order Number: [id number] Exam Date: 02/27/2025 20:08 Report Date: 02/27/2025 20:57 At the request of: DIANE CANTU MD Procedure: XR abdomen min 2V 2 views of the abdomen INDICATION: Abdominal pain COMPARISON: None FINDINGS: Visualized are clear. No definite free air. Dgie-rp-kvmhazfz colonic stool burden. Nonspecific nonobstructive small bowel past pattern. No radiopaque calcifications densities overlying the renal shadows or psoas muscle. Levocurvature of the lumbar spine. XR/XR abdomen min 2V IMPRESSION: NONSPECIFIC NONOBSTRUCTIVE BOWEL GAS PATTERN. Impression dictated by: Lizandro Tucker M.D. 02/27/2025 8:57 PM Dictation Location: [place] [address] Electronically authenticated by: [id number] Date: 02/27/2025 20:57
[2025-02-27 20:02] LABS: Glucose Urine UA NEGATIVE (NEGATIVE)
[2025-02-27 20:08] LABS: Hematocrit 30.6 % (36.0-48.0); Hemoglobin 8.8 g/dL (12.0-16.0); Immature Granulocytes Abs Auto 0.10 10^3/uL (0.00-0.03); Immature Granulocytes Pct Auto 1.0 % (0.0-0.5); Lymphocytes Absolute Auto 3.1 10^3/uL (1.2-3.8); Mean Corpuscular HGB Conc 28.8 g/dL (29.9-35.2); Mean Corpuscular Hemoglobin 20.1 pg (26.7-34.0); Mean Corpuscular Volume 70.0 fL (81.0-99.0); Platelet Count 409 10^3/uL (150-450); White Blood Count 10.1 10^3/uL (4.0-11.0)
[2025-02-27 20:17] LABS: Cast Seen? NONE SEEN #/LPF (NONE SEEN); Crystals Seen? None Seen #/HPF (None Seen); Lactate/Lactic Acid 1.3 mmol/L (0.4-2.0); Urine Culture Indicated YES-FRMC
[2025-02-27 20:35] LABS: Alanine Aminotransferase 24 U/L (14-59); Albumin Globulin Ratio 0.9; Albumin Level 3.8 g/dL (3.4-5.0); Alkaline Phosphatase 85 U/L (46-116); Anion Gap 12.7; Aspartate Amino Transferase 11 U/L (15-37); Blood Urea Nitrogen 13.0 mg/dL (7.0-18.0); Calcium 9.3 mg/dL (8.5-10.1); Carbon Dioxide 26.1 mmol/L (21.0-32.0); Chloride 105 mmol/L (98-107); Estimated GFR (African America >60 (>=60 mL/min/1.73m^2); Estimated GFR (Non-African Ame >60 (>=60 mL/min/1.73m^2); Globulin 4.3 g/dL; Glucose 95 mg/dL (74-106); Potassium 3.8 mmol/L (3.5-5.1); Sodium 140 mmol/L (136-145); Total Protein 8.1 g/dL (6.4-8.2)
[2025-02-27 20:42] LABS: Red Blood Count 4.37 10^6/uL (4.20-5.40)
[2025-02-27] MEDS: PANTOPRAZOLE SODIUM 40 MG TABLET.DR PO (21:25)
[2025-02-27 21:26] VITALS: BP 122/78; PULSE 66; O2SAT 100
== END 2025-02-27 21:42 | disposition home or self-care (01) ==
PROVIDERS: Emergency Provider Internal Medicine
DX: N39.0 Urinary tract infection, site not specified (principal); R10.9 Unspecified abdominal pain; K21.9 Gastro-esophageal reflux disease without esophagitis; F17.210 Nicotine dependence, cigarettes, uncomplicated; E28.2 Polycystic ovarian syndrome; D64.9 Anemia, unspecified
CPT/HCPCS: 36415; 74019; 80053; 81001; 83605; 85025; 87086; 96365; 99285; J0696